=== PATIENT | male | born 1995 | race Caucasian/White ===

== ENCOUNTER 2017-09-22 19:27 | Emergency (ER) | payer MEDICAID ==
[~2017-09-22] VITALS: Ht 182.9 cm; Wt 72.6 kg
[2017-09-22 19:28] VITALS: BP_SYST 149
[2017-09-22] MEDS ORDERED: NACL 0.9% 1,000 ML IV ONE (20:15)
[2017-09-22] MEDS ORDERED: ACTIVATED CHARCOAL 50 GM ORAL.SUSP PO ONE (20:30)
[2017-09-22 20:36] LABS: BASOPHILS # (AUTO) 0.1 K/uL (0.0-0.2); BASOPHILS % (AUTO) 0.9 % (0.0-2.0); EOSINOPHILS # (AUTO) 0.1 K/uL (0.0-0.4); EOSINOPHILS % (AUTO) 0.8 % (0.0-4.0); HEMATOCRIT 45.1 % (36-54); HEMOGLOBIN 14.8 g/dL (14.0-18.0); LYMPHOCYTES # (AUTO) 1.5 K/uL (1.0-5.5); LYMPHOCYTES % (AUTO) 21.2 % (20.5-51.5); MEAN CORPUSCULAR HEMOGLOBIN 29 pg (27-31); MEAN CORPUSCULAR HGB CONC 33 % (32-36); MEAN CORPUSCULAR VOLUME 90 fL (79.0-98.0); MONOCYTES # (AUTO) 0.6 K/uL (0.0-1.0); NEUTROPHILS # (AUTO) 4.8 K/uL (1.8-7.7); NEUTROPHILS % (AUTO) 69.1 % (40.0-70.0); PLATELET COUNT (AUTO) 274 K/uL (130-430); RED BLOOD CELL COUNT(AUTO) 5.04 MIL/uL (4.2-6.2); RED CELL DISTRIBUTION WIDTH 11.7 % (9.0-15.0); WHITE BLOOD COUNT (AUTO) 7.1 K/uL (4.8-10.8)
[2017-09-22 20:58] LABS: ANION GAP 8 (5-15); CALCIUM 9.2 mg/dL (8.4-11.0); CHLORIDE 105 mmol/L (98-107); CREATININE 1.17 mg/dL (0.55-1.30); GLUCOSE 99 mg/dL (70-99); POTASSIUM 3.7 mmol/L (3.5-5.1); SODIUM SERUM 140 mmol/L (136-145); UREA NITROGEN, BLOOD 16 mg/dL (8-21)
[2017-09-22 21:00] LABS: GFR AFRICAN AMERICAN 100 mL/min (>90)
[2017-09-22 21:03] LABS: ALANINE AMINOTRANSFERASE 42 U/L (12-78); ALBUMIN 4.3 g/dL (3.4-4.8); ALCOHOL, BLOOD 4 mg/dL (<10); ASPARTATE AMINOTRANSFERASE 18 U/L (10-37); TOTAL BILIRUBIN 0.4 mg/dL (0.0-1.0)
[2017-09-22 21:07] LABS: ACETAMINOPHEN < 1 ug/mL (1-30)
[2017-09-23 01:06] LABS: BARBITURATE, URINE NEGATIVE (NEG <=200); BENZODIAZEPINE, URINE NEGATIVE (NEG <=150); CANNABINOID, URINE NEGATIVE (NEG <=50); COCAINE, URINE NEGATIVE (NEG <=150); METHAMPHETAMINES SCREEN,URINE NEGATIVE (NEG <=500); OPIATE, URINE NEGATIVE (NEG <=100); PHENCYCLIDINE SCREEN,URINE NEGATIVE (NEG <=25); UR TRICYCLIC ANTIDEPRESSANTS NEGATIVE (NEG <=300); URINE AMPHETAMINE NEGATIVE (NEG <=500); URINE METHADONE NEGATIVE (NEG <=200); URINE OXYCODONE SCREEN NEGATIVE (NEG <=100); URINE PROPOXYPHENE SCREEN NEGATIVE (NEG <=300)
[2017-09-23 16:00] VITALS: BP_SYST 114
== END 2017-09-23 16:00 ==
LOC: SED 19:27
DX: T44.7X2A Poisoning by beta-adrenoreceptor antagonists, intentional self-harm, initial encounter (principal); R45.851 Suicidal ideations; Y92.89 Other specified places as the place of occurrence of the external cause
CPT/HCPCS: 36415; 80053; 80307; 85025; 93005; 96360; 99285; G0480; G0481; G0482; J7030

== ENCOUNTER 2018-04-07 10:26 | Emergency (ER) | payer MEDICAID ==
[~2018-04-07] VITALS: Ht 182.9 cm; Wt 81.6 kg
[2018-04-07 10:26] VITALS: BP_SYST 135
[2018-04-07 10:56] LABS: BASOPHILS # (AUTO) 0.1 K/uL (0.0-0.2); BASOPHILS % (AUTO) 1.6 % (0.0-2.0); EOSINOPHILS % (AUTO) 0.9 % (0.0-4.0); HEMATOCRIT 43.7 % (36-54); HEMOGLOBIN 14.5 g/dL (14.0-18.0); LYMPHOCYTES # (AUTO) 1.3 K/uL (1.0-5.5); LYMPHOCYTES % (AUTO) 25.1 % (20.5-51.5); MEAN CORPUSCULAR HEMOGLOBIN 30 pg (27-31); MEAN CORPUSCULAR HGB CONC 33 % (32-36); MEAN CORPUSCULAR VOLUME 91 fL (79.0-98.0); MONOCYTES # (AUTO) 0.5 K/uL (0.0-1.0); MONOCYTES % (AUTO) 9.2 % (1.7-9.3); NEUTROPHILS # (AUTO) 3.2 K/uL (1.8-7.7); NEUTROPHILS % (AUTO) 63.2 % (40.0-70.0); PLATELET COUNT (AUTO) 220 K/uL (130-430); RED BLOOD CELL COUNT(AUTO) 4.82 MIL/uL (4.2-6.2); RED CELL DISTRIBUTION WIDTH 12.2 % (9.0-15.0); WHITE BLOOD COUNT (AUTO) 5.1 K/uL (4.8-10.8)
[2018-04-07 11:02] LABS: CALCIUM 8.7 mg/dL (8.4-11.0); CREATININE 1.39 mg/dL (0.55-1.30); POTASSIUM 4.6 mmol/L (3.5-5.1)
[2018-04-07 11:05] LABS: PROTHROMBIN TIME 10.1 SECS (9.5-12.5)
[2018-04-07 11:06] LABS: TOTAL BILIRUBIN 0.3 mg/dL (0.0-1.0)
[2018-04-07 11:22] LABS: BILIRUBIN,URINE 1+ (NEGATIVE); BLOOD, URINE 3+ (NEGATIVE); CLARITY/URINE CLOUDY (CLEAR); COLOR,URINE BROWN (YELLOW); GLUCOSE,URINE NEGATIVE (NEGATIVE); KETONES,URINE TRACE (NEGATIVE); LEUKOCYTE ESTERASE ,URINE NEGATIVE (NEGATIVE); NITRITE, URINE NEGATIVE (NEGATIVE); PROTEIN URINE 2+ (NEGATIVE); UROBILINOGEN,URINE 0.2 (0.2-1.0)
[2018-04-07 11:35] LABS: BACTERIA,URINE FEW /HPF (None Seen); RBC,URINE >100 /HPF (0-3); WBC,URINE 0-3 /HPF (0-3)
[2018-04-07 11:36] LABS: FINE GRANULAR CASTS,URINE 0-10 /LPF (None Seen); MUCUS,URINE 2+ /LPF (None Seen)
[2018-04-07] MEDS ORDERED: KETOROLAC TROMETHAMINE 60 MG/2 ML VIAL IM ONE (12:00)
[2018-04-07 12:39] VITALS: BP_SYST 126
== END 2018-04-07 12:36 | disposition home or self-care (01) ==
LOC: SED 10:26
DX: N23 Unspecified renal colic (principal); F32.9 Major depressive disorder, single episode, unspecified; R03.0 Elevated blood-pressure reading, without diagnosis of hypertension
CPT/HCPCS: 36415; 74176; 80053; 81000; 82150; 83690; 85025; 85610; 85730; 96372; 99285; J1885

== ENCOUNTER 2018-10-22 00:47 | Emergency (ER) | payer MEDICAID ==
[~2018-10-22] VITALS: Ht 182.9 cm; Wt 86.2 kg
[2018-10-22 00:54] VITALS: BP_SYST 161
[2018-10-22 03:20] VITALS: BP_SYST 161
[2018-10-22] MEDS ORDERED: HYDROcodone/ACETAMIN 5-325 MG TAB (NORCO/ VICODIN) PO ONE (03:30)
[2018-10-22] MEDS ORDERED: LIDOCAINE VISCOUS 2%, 15 ML UDC ONE (04:40)
[2018-10-22] MEDS ORDERED: LIDOCAINE VISCOUS 2%, 15 ML UDC MM ONE (04:45)
== END 2018-10-22 05:20 | disposition home or self-care (01) ==
LOC: SED 00:47
DX: T43.595A Adverse effect of other antipsychotics and neuroleptics, initial encounter (principal); T43.215A Adverse effect of selective serotonin and norepinephrine reuptake inhibitors, initial encounter; T43.295A Adverse effect of other antidepressants, initial encounter; F32.9 Major depressive disorder, single episode, unspecified; Y92.89 Other specified places as the place of occurrence of the external cause
CPT/HCPCS: 99283; J2001

== ENCOUNTER 2019-06-24 19:02 | Emergency (ER) | payer MEDICAID ==
[~2019-06-24] VITALS: Ht 182.9 cm; Wt 83.9 kg
[2019-06-24 20:10] VITALS: BP_SYST 140
--- NOTE | 2019-06-25 03:12 | NUR ---
Pt c/o tingling in face, bilat hands, and toes since Tuesday after consuming a total of 50 shots of Vodka between Tuesday and Tuesday. Pt verbalizes a hx of anxiety "that goes in waves." Pt hyperventilating and instructed to slow down his breathing. Pt denies c/o C/P. Placed on monitoring analyst. HR 109, R 28, SPO2 100%. Friend at bedside. Addendum: 06/25/19 at 0547 by VITOR Pt also c/o urinary frequency.
--- NOTE | 2019-06-25 03:12 | NUR ---
Pt ambulatory to bed 8 for evaluation
--- NOTE | 2019-06-25 03:30 | NUR ---
Dr. Thompson at bedside to assess pt.
[2019-06-25] MEDS ORDERED: MAGNESIUM SULFATE 50 ML IV ONE (04:00)
[2019-06-25] MEDS ORDERED: NACL 0.9% 1,000 ML IV ONE ×2 (04:00→08:30)
[2019-06-25 04:21] LABS: BILIRUBIN,URINE NEGATIVE (NEGATIVE); BLOOD, URINE NEGATIVE (NEGATIVE); CLARITY/URINE CLEAR (CLEAR); COLOR,URINE YELLOW (YELLOW); GLUCOSE,URINE NEGATIVE (NEGATIVE); KETONES,URINE TRACE (NEGATIVE); LEUKOCYTE ESTERASE ,URINE NEGATIVE (NEGATIVE); NITRITE, URINE NEGATIVE (NEGATIVE); PH,URINE >=9.0 (5.0-8.0); PROTEIN URINE 1+ (NEGATIVE)
--- NOTE | 2019-06-25 04:30 | NUR ---
Pt appears relaxed and talking with friend who is present to bedside. HR 98, SPO2 100%. Denies c/o pain or discomfort and no needs verbalized at this time.
[2019-06-25 04:36] LABS: BARBITURATE, URINE NEGATIVE (NEG <=200); BENZODIAZEPINE, URINE NEGATIVE (NEG <=150); CANNABINOID, URINE NEGATIVE (NEG <=50); COCAINE, URINE NEGATIVE (NEG <=150); METHAMPHETAMINES SCREEN,URINE NEGATIVE (NEG <=500); OPIATE, URINE NEGATIVE (NEG <=100); PHENCYCLIDINE SCREEN,URINE NEGATIVE (NEG <=25); UR TRICYCLIC ANTIDEPRESSANTS NEGATIVE (NEG <=300); URINE AMPHETAMINE NEGATIVE (NEG <=500); URINE METHADONE NEGATIVE (NEG <=200); URINE OXYCODONE SCREEN NEGATIVE (NEG <=100); URINE PROPOXYPHENE SCREEN NEGATIVE (NEG <=300)
[2019-06-25 04:55] LABS: BACTERIA,URINE FEW /HPF (None Seen); RBC,URINE 0-3 /HPF (0-3); WBC,URINE 0-3 /HPF (0-3)
--- NOTE | 2019-06-25 05:05 | NUR ---
# 20 gauge angiocath placed to LAC. Use of asceptic technique. Opsite placed over site. Blood return noted. Blood for lab drawn from site. Flushed with 10 cc of normal saline. No evidence of infiltration noted. Patient tolerated well.
[2019-06-25 05:28] LABS: BASOPHILS % (AUTO) 0.3 % (0.0-2.0); EOSINOPHILS % (AUTO) 0.2 % (0.0-4.0); HEMATOCRIT 42.2 % (36-54); HEMOGLOBIN 14.7 g/dL (14.0-18.0); LYMPHOCYTES # (AUTO) 1.5 K/uL (1.0-5.5); LYMPHOCYTES % (AUTO) 11.9 % (20.5-51.5); MEAN CORPUSCULAR HEMOGLOBIN 31 pg (27-31); MEAN CORPUSCULAR HGB CONC 35 % (32-36); MEAN CORPUSCULAR VOLUME 88 fL (79.0-98.0); MONOCYTES # (AUTO) 1.1 K/uL (0.0-1.0); MONOCYTES % (AUTO) 8.2 % (1.7-9.3); NEUTROPHILS # (AUTO) 10.3 K/uL (1.8-7.7); NEUTROPHILS % (AUTO) 79.4 % (40.0-70.0); PLATELET COUNT (AUTO) 280 K/uL (130-430); RED BLOOD CELL COUNT(AUTO) 4.81 MIL/uL (4.2-6.2); RED CELL DISTRIBUTION WIDTH 12.4 % (9.0-15.0); WHITE BLOOD COUNT (AUTO) 12.9 K/uL (4.8-10.8)
[2019-06-25 05:53] LABS: ALBUMIN 4.4 g/dL (3.4-4.8); CALCIUM 9.1 mg/dL (8.4-11.0); CREATININE 1.29 mg/dL (0.55-1.30); POTASSIUM 4.1 mmol/L (3.5-5.1); TOTAL BILIRUBIN 1.2 mg/dL (0.0-1.0)
--- NOTE | 2019-06-25 06:00 | NUR ---
Pt anxious, R 26, pt reassured and instructed to slow down breathing. Pt verbalizes understanding, but continues to hyperventilate. SPO2 98% RA. Dr. Thompson notified.
[2019-06-25 06:17] LABS: CKMB RELATIVE INDEX 0.4 (0.0-2.9); CREATINE KINASE MB 1.8 ng/mL (0-3.6)
--- NOTE | 2019-06-25 06:55 | NUR ---
Per bedside instrument room technician, pt HR 130, R 24, SPO2 100%. Denies c/o C/P. Dr. Thompson notified and at bedside to evaluate pt.
[2019-06-25] MEDS ORDERED: LORazepam 2 MG/ML VIAL IVP ONE ×2 (07:15→08:30)
--- NOTE | 2019-06-25 07:17 | NUR ---
Dr. Thompson at bedside to reassess pt. Pt on multiple psychiatric medications along with Levothyroxine. HR 130 s/p administration of Ativan 2 mg IVP. Pt denies c/o C/P.
[2019-06-25 08:02] LABS: CHLORIDE 106 mmol/L (98-107); POTASSIUM 3.7 mmol/L (3.5-5.1); SODIUM SERUM 140 mmol/L (136-145)
[2019-06-25 08:03] LABS: ANION GAP 13 (5-15); CALCIUM 8.7 mg/dL (8.4-11.0); CREATININE 1.26 mg/dL (0.55-1.30); GFR AFRICAN AMERICAN 90 mL/min (>90); GLUCOSE 109 mg/dL (70-99); UREA NITROGEN, BLOOD 13 mg/dL (8-21)
[2019-06-25 08:09] LABS: ACETONE, SERUM NEGATIVE (NEGATIVE)
--- NOTE | 2019-06-25 08:13 | NUR ---
Pt report given to SAMANTHA Copeland.
--- NOTE | 2019-06-25 08:15 | NUR ---
Pt HR 162. Dr. Casey notified and at bedside to assess pt.
[2019-06-25 08:17] LABS: FREE T4 (FREE THYROXINE) 1.5 ng/dL (0.6-1.6); THYROID STIMULATING HORMONE 2.21 uIu/mL (0.34-4.82)
[2019-06-25] MEDS ORDERED: PRO20 PO (08:23)
[2019-06-25] MEDS ORDERED: RISP1SOL PO (08:23)
[2019-06-25] MEDS ORDERED: BUPR200T2 PO (08:23)
[2019-06-25] MEDS ORDERED: BUSP10TA3 PO (08:23)
[2019-06-25] MEDS ORDERED: synthroid (08:23)
--- NOTE | 2019-06-25 08:23 | NUR ---
Medication reconciliation completed with information provided by patient. Any prior medication reconciliation on file was reviewed and corrected.
--- NOTE | 2019-06-25 08:41 | NUR ---
Administered Lorazepam IVP as ordered by Dr. Vilchis. Patient tolerated the medications well.
--- NOTE | 2019-06-25 08:42 | NUR ---
Patient taken to Radiology via wheelchair, in stable condition.
--- NOTE | 2019-06-25 09:13 | NUR ---
Patient is lying in bed, hallucinating. Still tachycardic and tachypnec. Encouraged to rest, relax and some deep breathing. Patient verbalized understanding.
--- NOTE | 2019-06-25 09:40 | NUR ---
Patient is restless, took his cardiac leads and blood pressure cuff off. Advised to take some deep breaths and try to calm down. Patient is incomprehensible. made aware.
[2019-06-25] MEDS ORDERED: DIPHENHYDRAMINE INJ 50 MG/ML VIAL IVP ONE (09:45)
[2019-06-25] MEDS ORDERED: HALOPERIDOL LACTATE 5 MG/ML VIAL IM ONE (09:45)
--- NOTE | 2019-06-25 10:15 | NUR ---
Received orders from Dr. Bishop. Patient is moved to Bed 5 for ICU Hold for DT.
[2019-06-25] MEDS ORDERED: D5NS 1,000 ML IV SCH (10:30)
--- NOTE | 2019-06-25 10:36 | NUR ---
medicated the pt w/ Haldol and Benadryl per MD order. Will reasess
--- NOTE | 2019-06-25 10:42 | NUR ---
Echo being done at bedside.
--- NOTE | 2019-06-25 10:55 | NUR ---
Dr. Bishop is assessing the at the bedside.
[2019-06-25] MEDS ORDERED: THIAMINE HCL 100 MG, MAGNESIUM SULFATE 1 GM in NS 100 ML IV SCH (12:00)
[2019-06-25] MEDS ORDERED: MVI IV SCH ×3 (12:00)
[2019-06-25] MEDS ORDERED: FOLIC ACID IV SCH ×3 (12:00)
[2019-06-25] MEDS ORDERED: NACL IV SCH ×3 (12:00)
[2019-06-25] MEDS ORDERED: BANANA IV SCH ×3 (12:00)
[2019-06-25] MEDS: LORazepam 2 MG/ML VIAL IVP PRN ×2 (12:38→18:47)
--- NOTE | 2019-06-25 12:52 | NUR ---
pt is refusing VS attemting to get out of bed. Security called
--- NOTE | 2019-06-25 14:08 | NUR ---
pt pulled out his IV.
--- NOTE | 2019-06-25 14:15 | NUR ---
# 20 gauge angiocath placed to Left hand. Use of asceptic technique. Opsite placed over site. Blood return noted. Blood for lab drawn from site. Flushed with 10 cc of normal saline. No evidence of infiltration noted. Patient tolerated well.
--- NOTE | 2019-06-25 16:12 | NUR ---
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 Reorientation provided.
--- NOTE | 2019-06-25 16:20 | NUR ---
pt sister is at the bedside
[2019-06-25 18:00] VITALS: BP_SYST 158
--- NOTE | 2019-06-25 18:50 | NUR ---
called for a tele bed. No bed or nurse available
--- NOTE | 2019-06-25 19:15 | NUR ---
Report given to Alvin guadalupe
--- NOTE | 2019-06-25 19:58 | NUR ---
Patient got out of bed attempting to get IV out. Patient states "I want to get out, I dont' want to be here anymore." Patient wanted to speak with the plant senior manager. bearingizer at bedside speaking with patient.
--- NOTE | 2019-06-25 20:58 | NUR ---
Patient took off leads and refused to be on monitor car operator.
--- NOTE | 2019-06-25 21:10 | NUR ---
Patient asked to call sister and brother into room. Pt verbalized that he does not want to stay. Pt is AAO x 4 and ambulatory with steady gait. Family came to bedside and was told the risks of leaving AMA. Patient was also informed on the risks of leaving against medical advice and verbalized understanding. Dr. Bishop was called. AMA form was signed in presence of brother, Nikolay Maki, and sister, Loida Maki.
--- NOTE | 2019-06-25 21:10 | NUR ---
Patient does not wish to proceed with medical care recommended by Dr. Bishop. Patient given information related to possible complications, up to and including , which could occur as a result of leaving hospital at this time. Patient verbalizes understanding of risks involved leaving against medical advice. Patient has signed AMA form.
== END 2019-06-24 21:10 | disposition left against medical advice (07) ==
LOC: SED 19:02 → UNDOADMIN 06-25 10:05 → SIC 06-25 10:05 → STU 06-25 20:35 → SIC 06-25 20:35 → UNDODISIN 06-25 21:30
DX: F10.231 Alcohol dependence with withdrawal delirium (principal); Z79.899 Other long term (current) drug therapy; Y90.9 Presence of alcohol in blood, level not specified
CPT/HCPCS: 36415; 36600; 71045; 80048; 80053; 80307; 81000-TC; 82009-TC; 82550-TC; 82553-TC; 82803-TC; 84439; 84443-TC; 85025; 87081; 93005; 93306; 99284; 99291; G0378; J1200; J1630; J2060; J3411; J3475; J3490; J7030

== ENCOUNTER 2019-10-10 16:58 | Emergency (ER) | payer MEDICAID ==
[~2019-10-10] VITALS: Ht 182.9 cm; Wt 93.0 kg
[~2019-10-10 16:58] MED LIST: BUPR200T2 PO; BUSP10TA3 PO; PRO20 PO; RISP1SOL PO; synthroid
[2019-10-10] MEDS ORDERED: VENL75CA PO (17:31)
[2019-10-10] MEDS ORDERED: HYDR-500 PO (17:31)
[2019-10-10 17:32] VITALS: BP_SYST 142
--- NOTE | 2019-10-10 17:38 | NUR ---
PATIENT TO WAITING ROOM, STABLE AND UNCHANGED
--- NOTE | 2019-10-10 17:56 | NUR ---
PATIENT TO [facility]
--- NOTE | 2019-10-10 18:05 | NUR ---
Patient A&O x4 and ambulated to ER hallway. Patient complains of rash on his back that is itchy and stings that started yesterday. Rash does not have any lesions. Patient denies difficulty breathing or difficulty swallowing. Patient takes medication called hydroxyzine. Hx of kidney stones. Will continue to monitor.
--- NOTE | 2019-10-10 18:05 | NUR ---
DR PATEL AT BEDSIDE FOR EVALUATION
[2019-10-10 18:38] VITALS: BP_SYST 134
--- NOTE | 2019-10-10 18:44 | NUR ---
Patient given written and verbal discharge instructions and verbalizes understanding. ER MD Vilchis discussed with patient the results and treatment provided. Patient in stable condition. ID arm band removed. Rx of Hydrocortisone given. Patient educated on pain management and to follow up with PMD. Pain Scale 0. Opportunity for questions provided and answered. Medication side effect fact sheet provided.
== END 2019-10-10 18:44 | disposition home or self-care (01) ==
LOC: SED 16:58
DX: R21 Rash and other nonspecific skin eruption (principal); F32.9 Major depressive disorder, single episode, unspecified; Z79.899 Other long term (current) drug therapy
CPT/HCPCS: 99282

== ENCOUNTER 2019-12-10 20:48 | Emergency (ER) | payer MEDICAID ==
[~2019-12-10] VITALS: Ht 180.3 cm; Wt 99.8 kg
[~2019-12-10 20:48] MED LIST changes: -BUSP10TA3 PO; +HYDR-500 PO; -PRO20 PO; +VENL75CA PO; -synthroid
[2019-12-10 20:55] VITALS: BP_SYST 141
--- NOTE | 2019-12-10 22:01 | NUR ---
Patient to ER bed 7 to gown for evaluation. Side rails up. Report given to HOSEA SINGH.
--- NOTE | 2019-12-10 22:01 | NUR ---
Pt c/o numbness and tingling to BHA and difficulty concentrating intermittenly for the past 24 hours. NIH 0.
--- NOTE | 2019-12-10 22:20 | NUR ---
Dr. Vilchis at bedside.
[2019-12-10 22:53] LABS: BARBITURATE, URINE NEGATIVE (NEG <=200); BENZODIAZEPINE, URINE NEGATIVE (NEG <=150); CANNABINOID, URINE NEGATIVE (NEG <=50); COCAINE, URINE NEGATIVE (NEG <=150); METHAMPHETAMINES SCREEN,URINE NEGATIVE (NEG <=500); OPIATE, URINE NEGATIVE (NEG <=100); PHENCYCLIDINE SCREEN,URINE NEGATIVE (NEG <=25); URINE AMPHETAMINE NEGATIVE (NEG <=500); URINE METHADONE NEGATIVE (NEG <=200); URINE OXYCODONE SCREEN NEGATIVE (NEG <=100)
[2019-12-10 22:54] LABS: UR TRICYCLIC ANTIDEPRESSANTS NEGATIVE (NEG <=300); URINE PROPOXYPHENE SCREEN NEGATIVE (NEG <=300)
--- NOTE | 2019-12-10 23:30 | NUR ---
Pt verbalizes improvement in symptoms.
[2019-12-10 23:35] VITALS: BP_SYST 132
--- NOTE | 2019-12-10 23:35 | NUR ---
Patient given written and verbal discharge instructions and verbalizes understanding. ER MD discussed with patient the results and treatment provided. Patient in stable condition. ID arm band removed. No Rx given. Patient educated on pain management and to follow up with PMD. Pain Scale 0/10. Opportunity for questions provided and answered. Medication side effect fact sheet provided.
== END 2019-12-10 23:35 | disposition home or self-care (01) ==
LOC: SED 20:48
DX: R20.2 Paresthesia of skin (principal); R51 Headache; F41.9 Anxiety disorder, unspecified; Z79.899 Other long term (current) drug therapy
CPT/HCPCS: 70450-TC; 80307; 99284

== ENCOUNTER 2020-07-16 21:33 | Emergency (ER) | payer MEDICAID, SELFPAY ==
[~2020-07-16] VITALS: Ht 180.3 cm; Wt 104.3 kg
--- NOTE | 2020-07-16 22:00 | NUR ---
Pt triaged and placed in waiting room
[2020-07-16 22:45] VITALS: BP_SYST 153
[2020-07-16 23:41] LABS: BASOPHILS % (AUTO) 0.3 % (0.0-2.0); EOSINOPHILS % (AUTO) 0.4 % (0.0-4.0); HEMATOCRIT 46.7 % (36-54); HEMOGLOBIN 15.6 g/dL (14.0-18.0); LYMPHOCYTES # (AUTO) 1.8 K/uL (1.0-5.5); LYMPHOCYTES % (AUTO) 23.3 % (20.5-51.5); MEAN CORPUSCULAR HEMOGLOBIN 29 pg (27-31); MEAN CORPUSCULAR HGB CONC 34 % (32-36); MEAN CORPUSCULAR VOLUME 88 fL (79.0-98.0); MONOCYTES # (AUTO) 0.6 K/uL (0.0-1.0); MONOCYTES % (AUTO) 8.2 % (1.7-9.3); NEUTROPHILS # (AUTO) 5.3 K/uL (1.8-7.7); NEUTROPHILS % (AUTO) 67.8 % (40.0-70.0); PLATELET COUNT (AUTO) 322 K/uL (130-430); RED BLOOD CELL COUNT(AUTO) 5.31 MIL/uL (4.2-6.2); RED CELL DISTRIBUTION WIDTH 12.6 % (9.0-15.0); WHITE BLOOD COUNT (AUTO) 7.9 K/uL (4.8-10.8)
[2020-07-16 23:57] LABS: CALCIUM 9.2 mg/dL (8.4-11.0); CREATININE 1.24 mg/dL (0.55-1.30); POTASSIUM 4.7 mmol/L (3.5-5.1)
[2020-07-17 00:03] LABS: ALBUMIN 4.2 g/dL (3.4-4.8); TOTAL BILIRUBIN 0.3 mg/dL (0.0-1.0)
[2020-07-17] MEDS ORDERED: IBUPROFEN 800 MG TABLET PO ONE (00:30)
[2020-07-17 01:35] LABS: FREE T4 (FREE THYROXINE) 0.6 ng/dL (0.6-1.6); THYROID STIMULATING HORMONE 0.19 uIu/mL (0.34-4.82)
--- NOTE | 2020-07-17 01:54 | NUR ---
Patient came to ER with family. C/O cough x 1-2 weeks. Patient had cough with mucus with blood (sometime). A/O,X4, No respiratory distress, no chest pain, oxygen sat 99-100 % RA.
--- NOTE | 2020-07-17 01:55 | NUR ---
Swabs COVID 19 (PCR ) and send to lab.
[2020-07-17 02:09] VITALS: BP_SYST 142
--- NOTE | 2020-07-17 02:09 | NUR ---
Patient given written and verbal discharge instructions and verbalizes understanding. ER MD discussed with patient the results and treatment provided. Patient in stable condition. ID arm band removed. Rx of Guaifenesin given. Patient educated on pain management and to follow up with PMD. Pain Scale . Opportunity for questions provided and answered. Medication side effect fact sheet provided.
== END 2020-07-17 02:09 | disposition home or self-care (01) ==
LOC: SED 21:33
DX: B34.9 Viral infection, unspecified (principal); R07.9 Chest pain, unspecified; R06.02 Shortness of breath; Z20.828 Contact with and (suspected) exposure to other viral communicable diseases; Z79.899 Other long term (current) drug therapy
CPT/HCPCS: 36415; 71045; 80053; 84439; 84443; 85025; 85379; 93005; 99285; C9803; U0003

== ENCOUNTER 2022-07-29 02:04 | Emergency (ER) | payer MEDICAID ==
[~2022-07-29] VITALS: Ht 182.9 cm; Wt 99.8 kg
[2022-07-29 02:20] VITALS: BP_SYST 117
--- NOTE | 2022-07-29 02:20 | NUR ---
Patient triaged and placed in waiting room. VSS and patient appears in no acute distress at this time. Accompanied by fam member, awaiting available bed, and MD notified of need for MSE.
--- NOTE | 2022-07-29 04:20 | NUR ---
Patient to ER bed 1 to gown for evaluation. Side rails up. Report given to Pamella SINGH(reg).
[2022-07-29] MEDS ORDERED: NACL 0.9% 1,000 ML IV ONE (04:30)
[2022-07-29] MEDS ORDERED: ONDANSETRON HCL 4 MG/2 ML VIAL IVP ONE (04:30)
[2022-07-29] MEDS ORDERED: KETOROLAC TROMETHAMINE 30 MG VIAL IVP ONE (04:30)
[2022-07-29] MEDS ORDERED: MORPHINE 4 MG INJ. 4 MG/ML VIAL IVP ONE ×2 (04:30→05:45)
[2022-07-29 04:38] LABS: BILIRUBIN,URINE NEGATIVE (NEGATIVE); BLOOD, URINE 3+ (NEGATIVE); CLARITY/URINE SL CLOUDY (CLEAR); COLOR,URINE RED (YELLOW); GLUCOSE,URINE NEGATIVE (NEGATIVE); KETONES,URINE TRACE (NEGATIVE); LEUKOCYTE ESTERASE ,URINE TRACE (NEGATIVE); NITRITE, URINE POSITIVE (NEGATIVE); PH,URINE 6.5 (5.0-8.0); PROTEIN URINE 2+ (NEGATIVE)
--- NOTE | 2022-07-29 04:39 | NUR ---
ER at bedside examining patient.
[2022-07-29 04:41] LABS: RBC,URINE >100 /HPF (0-3); WBC,URINE 0-3 /HPF (0-3)
[2022-07-29 04:42] LABS: BACTERIA,URINE None Seen /HPF (None Seen)
--- NOTE | 2022-07-29 05:07 | NUR ---
BIB FAMILY WITH C/O RIGHT FLANK PAIN, #20G ESTABLISHED IN RIGHT FOREARM, MEDICATED PER ORDER, NORMAL SALINE INFUSING. PATIENT WAS INFORMED OF PLAN OF CARE. NO S/S OF ANY DISTRESS NOTED. PAIN PRIOR TO MEDICATION WAS 10/10. WILL REASSESS SOON. SIDE RAILS UP WILL CONTINUE TO MONITOR.
--- NOTE | 2022-07-29 05:29 | NUR ---
PATIENT REQUESTING MORE PAIN MEDICATION, MD INFORMED AT THIS TIME.
--- NOTE | 2022-07-29 05:51 | NUR ---
PATIENT MEDICATED PER ORDER.
--- NOTE | 2022-07-29 06:05 | NUR ---
PAIN IS 3/10 AT THIS TIME.
[2022-07-29] MEDS ORDERED: HYDR-3917 PO (06:13)
[2022-07-29] MEDS ORDERED: NAPR-688 PO (06:13)
[2022-07-29 06:33] LABS: CALCIUM 8.3 mg/dL (8.4-11.0)
[2022-07-29 06:34] LABS: EOSINOPHILS % (AUTO) 0.1 % (0.0-4.0); HEMATOCRIT 41.4 % (36-54); HEMOGLOBIN 13.8 g/dL (14.0-18.0); LYMPHOCYTES % (AUTO) 9.3 % (20.5-51.5); MEAN CORPUSCULAR HEMOGLOBIN 29 pg (27-31); MEAN CORPUSCULAR HGB CONC 33 % (32-36); MEAN CORPUSCULAR VOLUME 88 fL (79.0-98.0); MONOCYTES # (AUTO) 0.4 K/uL (0.0-1.0); NEUTROPHILS # (AUTO) 9.1 K/uL (1.8-7.7); NEUTROPHILS % (AUTO) 86.6 % (40.0-70.0); PLATELET COUNT (AUTO) 265 K/uL (130-430); RED BLOOD CELL COUNT(AUTO) 4.71 MIL/uL (4.2-6.2); RED CELL DISTRIBUTION WIDTH 12.7 % (9.0-15.0); WHITE BLOOD COUNT (AUTO) 10.5 K/uL (4.8-10.8)
[2022-07-29 06:39] VITALS: BP_SYST 142
[2022-07-29 06:39] LABS: ALBUMIN 3.8 g/dL (3.4-4.8); TOTAL BILIRUBIN 0.4 mg/dL (0.0-1.0)
--- NOTE | 2022-07-29 06:55 | NUR ---
ACI GIVEN, STATES UNDERSTANDING, HL REMOVED, REMAINS STABLE FOR DISCHARGE HOME WITH FAMILY.
== END 2022-07-29 06:55 | disposition home or self-care (01) ==
LOC: SED 02:04
DX: N21.1 Calculus in urethra (principal); R10.9 Unspecified abdominal pain; Z79.899 Other long term (current) drug therapy
CPT/HCPCS: 99284; 74176; 96374; 96361; 96375; 80053; 81000; 83690; 85025; 36415; 76376; 96376; J1885; J2405; J2270; J7030